=== PATIENT | male | born 1985 | race Hispanic/Latino ===

== ENCOUNTER 2016-12-29 19:15 | Emergency (ER) | payer SELFPAY ==
[2016-12-29 19:30] VITALS: BP 149/97; PULSE 90; RESP 18; TEMP 98.7; O2SAT 100
--- NOTE | 2016-12-29 20:23 | ED PDOC ---
HPI: General Adult Time Seen by Provider: 12/29/16 19:53 Chief Complaint (Nursing): Medical Clearance Chief Complaint (Provider): Prescription refill History Per: Patient History/Exam Limitations: no limitations Additional Complaint(s): Cash Perry, a 31 year old male, presents to the ED for a prescription refill. The patient states that he is from [place] and ran out of zolof, which he has been on for 6 months. Past Medical History Reviewed: Historical Data, Nursing Documentation, Vital Signs Vital Signs: Last Vital Signs Temp 98.7 F 12/29/16 19:28 Pulse 90 12/29/16 19:28 Resp 18 12/29/16 19:28 BP 149/97 H 12/29/16 19:28 Pulse Ox 100 12/29/16 20:26 - Medical History PMH: No Chronic Diseases - Surgical History Surgical History: No Surg Hx - Family History Family History: States: Unknown Family Hx - Home Medications Home Medications: Ambulatory Orders Medication Instructions Recorded Sertraline HCl [Zoloft] 100 mg PO DAILY #14 tablet 12/29/16 - Allergies Allergies/Adverse Reactions: Allergies Allergy/AdvReac Type Severity Reaction Status Date / Time No Known Allergies Allergy Verified 12/29/16 19:27 Review of Systems Neurological: Positive for: Dizziness Physical Exam - Reviewed Nursing Documentation Reviewed: Yes Vital Signs Reviewed: Yes - Physical Exam Appears: Positive for: Non-toxic, No Acute Distress Head Exam: Positive for: ATRAUMATIC, NORMAL INSPECTION, NORMOCEPHALIC Skin: Positive for: Normal Color, Warm, Dry Eye Exam: Positive for: Normal appearance, EOMI, PERRL ENT: Positive for: Normal ENT Inspection Neck: Positive for: Normal Cardiovascular/Chest: Positive for: Regular Rate, Rhythm Respiratory: Positive for: CNT, Normal Breath Sounds Neurologic/Psych: Positive for: Alert, Oriented, Gait - ECG O2 Sat by Pulse Oximetry: 100 (RA) Pulse Ox Interpretation: Normal Medical Decision Making Medical Decision Makin Initial Impression: 31 year old male presenting for medication refill Scribe Attestation Documented by Sarah Scherer acting as a scribe for Brit Romo PA-C. Scribrosy Attestation All medical record entries made by the Scribe were at my direction and personally dictated by me. I have reviewed the chart and agree that the record accurately reflects my personal performance of the history, physical exam, medical decision making, and the department course for this patient. I have also personally directed, reviewed, and agree with the discharge instructions and disposition. Disposition - Clinical Impression Clinical Impression: Medication refill - Patient ED Disposition Is Patient to be Admitted: No - Disposition Referrals: [facility] [Outside] Disposition Time: 08:15 Condition: STABLE Prescriptions: Sertraline HCl [Zoloft] 100 mg PO DAILY #14 tablet Instructions: Sertraline (By mouth)
== END 2016-12-29 20:33 | disposition home or self-care (01) ==
LOC: H.ER 19:15
DX: Z76.0 Encounter for issue of repeat prescription (principal)